=== PATIENT | female | born 1935 | race Caucasian/White ===

== ENCOUNTER 2017-08-20 16:14 | Inpatient (IN) | payer OTHER ==
[~2017-08-20] VITALS: Ht 170.2 cm; Wt 101.9 kg
[~2017-08-20 16:14] MED LIST: B-COMPLEX-VITA1 EACH PO; BENADRYL25 MG PO; DIOVAN320 MG PO; FISH OIL 1,0001 EAC7 PO; GLUCOPHAGE500 MG PO; HYDROCODON-ACE1 EAC7 PO; LASIX20 MG PO; LO-DOSE ASPIRIN81 M1 PO; PRAVACHOL20 MG PO; PRILOSEC40 MG PO; SYNTHROID150 MCG PO; ZOLOFT50 MG PO
[2017-08-20 18:29] LABS: BASOPHIL (%) 0.6 % (0-1); BASOPHIL COUNT 0.1 K/uL (0-0.1); EOSINOPHIL (%) 2.4 % (0-5); EOSINOPHIL COUNT 0.2 K/uL (0-0.3); HEMATOCRIT 37.1 % (36.0-46.0); HEMOGLOBIN 12.9 G/DL (11.9-15.5); IMMATURE GRANULOCYTE (%) 0.3 % (0.0-0.7); LYMPHOCYTE COUNT 1.3 K/uL (1.0-2.8); MCH 35.2 PG (29.0-34.0); MCHC 34.8 G/DL (30.0-36.0); MCV 101.4 FL (83-99); MONOCYTE COUNT 1.1 K/uL (0-0.8); NEUTROPHIL (%) 68.7 % (45-76); PLATELET COUNT 113 K/uL (156-360); RBC DIS.WIDTH-CV 13.8 % (11.8-14.6); RED BLOOD COUNT 3.66 M/uL (3.80-5.20); WHITE BLOOD COUNT 8.8 K/uL (4.1-10.2)
[2017-08-20 18:40] LABS: ALBUMIN 3.7 g/dL (3.2-4.8)
[2017-08-20 18:41] LABS: CHLORIDE 104 mEq/L (99-109); POTASSIUM 4.1 mEq/L (3.7-5.4); SODIUM 138 mEq/L (136-147)
[2017-08-20 18:43] LABS: GLUCOSE 105 mg/dL (70-99); TOTAL PROTEIN 7.2 g/dL (6.4-8.3)
[2017-08-20 18:45] LABS: TOTAL BILIRUBIN 1.3 mg/dL (0.0-1.0)
[2017-08-20 18:46] LABS: ALKALINE PHOSPHATASE 124 IU/L (3-129)
[2017-08-20 18:47] LABS: CREATININE 0.6 mg/dL (0.6-1.3); GFR ESTIMATE (CALCULATED) > 59 mL/min/
[2017-08-20 18:48] LABS: AST (GOT) 41 IU/L (2-34); UREA NITROGEN (BUN) 16 mg/dL (9-23)
[2017-08-20 18:49] LABS: ALT (GPT) 24 IU/L (3-49)
[2017-08-20 19:38] LABS: THYROTROPIN (TSH) 6.5 MIU/L (0.4-5.5)
[2017-08-20] MEDS ORDERED: TYLENOL EXTRA500 MG PO (19:46)
[2017-08-20] MEDS ORDERED: NORVASC2.5 MG PO (19:46)
[2017-08-20 21:37] LABS: INTER. NORMALIZED RATIO 1.2
[2017-08-20 21:39] VITALS: BP 184/78
[2017-08-20 21:40] LABS: PTT 37.7 SEC (25-37)
[2017-08-21] VITALS (7 sets, daily range): BP systolic 168–180; BP diastolic 67–80
[2017-08-21 01:04] LABS: APPEARANCE CLEAR ((CLEAR)); BILIRUBIN NEGATIVE; BLOOD NEGATIVE; COLOR YELLOW ((YELLOW)); GLUCOSE (STRIP) NEGATIVE; KETONES NEGATIVE; LEUKOCYTES NEGATIVE; NITRITE NEGATIVE; PROTEIN (STRIP) NEGATIVE; SPECIFIC GRAVITY 1.016 (1.000-1.030); UCUL ADDED? NO
[2017-08-21 01:09] LABS: TROP-I INTERPRETATION NEGATIVE; TROPONIN-I 0.03 ng/mL (0.0-0.30)
[2017-08-21 05:59] LABS: HEMATOCRIT 34.6 % (36.0-46.0); HEMOGLOBIN 11.7 G/DL (11.9-15.5); MCV 102.7 FL (83-99)
[2017-08-21 06:29] LABS: CHLORIDE 104 MEQ/L (99-109); CREATININE 0.6 MG/DL (0.6-1.3); GFR ESTIMATE (CALCULATED) > 59 mL/min/; GLUCOSE 105 mg/dL (70-99); HDL CHOLESTEROL 48 MG/DL (Desirable>=50); LDL CHOLESTEROL 69 mg/dL (Desirable<100); NON-HDL CHOLESTEROL 86 mg/dL (Desirable<160); POTASSIUM 4.3 MEQ/L (3.7-5.4); SODIUM 136 MEQ/L (136-147); TOTAL CHOLESTEROL 134 mg/dL (Desirable<200); TRIGLYCERIDES 83 MG/DL (Normal: <150); UREA NITROGEN (BUN) 17 mg/dL (9-23)
[2017-08-21 06:29] LABS: TROP-I INTERPRETATION NEGATIVE; TROPONIN-I 0.05 ng/mL (0.0-0.30)
[2017-08-21 12:53] LABS: TROP-I INTERPRETATION NEGATIVE; TROPONIN-I 0.03 ng/mL (0.0-0.30)
[2017-08-22 03:19] VITALS: BP 165/70
[2017-08-22 06:03] LABS: HEMATOCRIT 32.1 % (36.0-46.0); HEMOGLOBIN 10.6 G/DL (11.9-15.5); MCV 103.2 FL (83-99)
[2017-08-22 08:00] VITALS: BP 198/80
[2017-08-22 12:00] VITALS: BP 135/72
[2017-08-22 19:29] VITALS: BP 120/58
[2017-08-22 23:36] VITALS: BP 138/66
[2017-08-23 03:58] VITALS: BP 155/70
[2017-08-23 06:24] LABS: HEMOGLOBIN 10.4 G/DL (11.9-15.5); MCH 34.4 PG (29.0-34.0); MCHC 33.5 G/DL (30.0-36.0); MCV 102.6 FL (83-99); PLATELET COUNT 104 K/uL (156-360); RBC DIS.WIDTH-CV 14.4 % (11.8-14.6); RBC DIS.WIDTH-SD 54.1 % (39-53); RED BLOOD COUNT 3.02 M/uL (3.80-5.20); WHITE BLOOD COUNT 11.9 K/uL (4.1-10.2)
[2017-08-23 06:44] LABS: CHLORIDE 100 MEQ/L (99-109); CREATININE 0.6 MG/DL (0.6-1.3); GFR ESTIMATE (CALCULATED) > 59 mL/min/; GLUCOSE 106 mg/dL (70-99); POTASSIUM 4.4 MEQ/L (3.7-5.4); SODIUM 131 MEQ/L (136-147); UREA NITROGEN (BUN) 26 mg/dL (9-23)
[2017-08-23 07:56] VITALS: BP 142/65
[2017-08-23 12:04] VITALS: BP 157/69
[2017-08-23] MEDS ORDERED: IMDUR30 MG PO (12:21)
[2017-08-23] MEDS ORDERED: SENNA PLUS TAB1 EACH PO (12:24)
[2017-08-23] MEDS ORDERED: LOVENOX40 MG/0.4 SC (12:25)
[2017-08-23] MEDS ORDERED: OXYCODONE HCL5 MG PO (12:26)
[2017-08-23 15:47] VITALS: BP 136/63
[2017-08-23 19:39] VITALS: BP 139/68
[2017-08-23 23:19] VITALS: BP 132/65
[2017-08-24 04:06] VITALS: BP 128/65
[2017-08-24 08:00] VITALS: BP 115/56
[2017-08-24 12:01] VITALS: BP 123/57
[2017-08-24 16:06] VITALS: BP 121/56
== END 2017-08-24 17:02 | DRG 482 ==
LOC: EME 16:14 → EDOF 19:54 → 3EAST 19:54 → ENRESERV 19:56 → 3EAST 21:09
PROVIDERS: Emergency Medicine; Hospitalist; Internal Medicine; Orthopaedic Surgery
PROC: 0QHC04Z Insertion of Internal Fixation Device into Left Lower Femur, Open Approach (ICD-10-PCS; principal; 2017-08-20)
DX: S72.412A Displaced unspecified condyle fracture of lower end of left femur, initial encounter for closed fracture (principal); W18.30XA Fall on same level, unspecified, initial encounter; E66.9 Obesity, unspecified; H91.90 Unspecified hearing loss, unspecified ear; I10 Essential (primary) hypertension; E78.00 Pure hypercholesterolemia, unspecified; I25.10 Atherosclerotic heart disease of native coronary artery without angina pectoris; I65.22 Occlusion and stenosis of left carotid artery; E11.9 Type 2 diabetes mellitus without complications; E03.9 Hypothyroidism, unspecified; F03.90 Unspecified dementia, unspecified severity, without behavioral disturbance, psychotic disturbance, mood disturbance, and anxiety; E66.01 Morbid (severe) obesity due to excess calories; Z86.73 Personal history of transient ischemic attack (TIA), and cerebral infarction without residual deficits; Z95.0 Presence of cardiac pacemaker; Z98.61 Coronary angioplasty status; Z68.35 Body mass index [BMI] 35.0-35.9, adult
CPT/HCPCS: 71045; 72170; 73552; 73700; 76000; 80048; 80053; 80061; 81003; 82306; 82948; 84439; 84443; 84484; 85014; 85018; 85025; 85027; 85610; 85730; 86850; 86900; 86901; 93005; 93880; 94799; 99281; 99285; C1713; J0690; J1100; J1170; J1644; J1815; J2405; J3010; J7030; S0020